=== PATIENT | female | born 1980 | race Caucasian/White ===

== ENCOUNTER 2021-10-09 00:26 | Emergency (ER) | payer OTHER, SELFPAY ==
--- NOTE | 2021-10-09 00:35 | DI.RAD.S_ITS ---
PROCEDURE: XR SHOULDER RT MIN 2V INDICATIONS: pain after fall TECHNIQUE: 3 views of the shoulder were acquired. COMPARISON: None. FINDINGS: Bones: No fractures or dislocations. No suspicious bony lesions. Visualized ribs appear intact. Soft tissues: No suspicious soft tissue calcifications. IMPRESSION: No acute osseous abnormality. Dictated by: Clem Mojica M.D. on 10/09/2021 at 0:46 Approved by: Clem Mojica M.D. on 10/09/2021 at 0:47
--- NOTE | 2021-10-09 00:36 | ED.GENADULT ---
HPI - General Adult General Chief complaint: Extremity Injury, Upper Stated complaint: sore rt should fell in shower t-3 days ago Time Seen by Provider: 10/09/21 00:32 Source: patient Mode of arrival: Ambulatory Limitations: no limitations History of Present Illness HPI narrative: Patient is a 41-year-old female here for evaluation of her right shoulder injury. States that approximately 3 days ago she she fell while she was in the shower. She did fall on an outstretched arm and hit her right shoulder on the corner of the shower. She did not hit her head. Has had discomfort in her right arm/right shoulder since the has been taking Tylenol/ibuprofen. Her primary doctor's office was closed until the middle of this week so the triage line that she called told her to come to the emergency department for evaluation. Review of Systems Constitutional Constitutional: Reports system reviewed and no additional complaints, except as documented Musculoskeletal Musculoskeletal: Reports system reviewed and no additional complaints, except as documented and Reports as per HPI Integumentary/Breasts Skin/Breast: Reports system reviewed and no additional complaints, except as documented Neurologic Comments: Tingling down right arm and hand Hematologic/Lymphatic On Anticoagulants: No Patient History Medical History Fibromyalgia Social History Smoking Status: Current every day smoker Exam Initial Vital Signs Initial Vital Signs: Vital Signs Temperature 99.6 F 10/09/21 00:38 Pulse Rate 94 H 10/09/21 00:38 Respiratory Rate 18 10/09/21 00:38 Blood Pressure 132/84 10/09/21 00:38 Pulse Oximetry 100 10/09/21 00:38 Cardio Pulses: radial pulses present on the right Back/Spine/Pelvis Cervical Spine: No cervical spinal tenderness Skin General: no rashes or lesions noted Neuro Sensory Exam: no sensory deficits noted Extrem Other: Patient has a negative [place] test. Negative [place] test. Negative cross-arm test. No tenderness over the biceps tendon. She reports tenderness to palpation over the lateral aspect of the shoulder or the deltoid. Collar bones unremarkable. Scapula is unremarkable. Course Orders Ordered: ED Orders 10/09/21 00:35 XR shoulder RT min 2V Stat Vital Signs Vital signs: Vital Signs - 8 hr 10/09/21 00:38 Temperature 99.6 F Pulse Rate 94 H Respiratory Rate 18 Blood Pressure 132/84 Pulse Oximetry 100 Medical Decision Making Imaging Data Extremity x-ray #1: Radiologist's Impression: [address] [address] XRay Report Signed Patient: Adali Fernandes MR#: [id number] : 1980 Acct:[id number] Age/Sex: 41 / F Date of Service: 10/09/21 Loc: ED Accession Number: [id number] ?? Procedure: XR shoulder RT min 2V Ordering Provider: Tereso Mc D.O. PROCEDURE:? XR SHOULDER RT MIN 2V ? INDICATIONS:? pain after fall ? TECHNIQUE:? 3 views of the shoulder were acquired.? ? COMPARISON:? None. ? FINDINGS:? ? Bones:? No fractures or dislocations.? No suspicious bony lesions.? Visualized ribs appear intact.? ? Soft tissues:? No suspicious soft tissue calcifications.? ? IMPRESSION:? No acute osseous abnormality. ? ? Dictated by: Clem Mojica M.D. on 10/09/2021 at 0:46 ? ? Approved by: Clem Mojica M.D. on 10/09/2021 at 0:47 MDM Narrative Medical decision making narrative: Patient is neurovascularly intact. No fractures noted on the x-rays. No dislocation. I did discuss with her the use of nonsteroidal anti-inflammatories and also Tylenol. No indication for further radiologic studies here in the ER. We did discuss the possibility of other soft tissue injuries and she was instructed to contact her primary doctor for a follow-up as she may need further evaluation potentially by physical therapy or an MRI in the future if the symptoms do not improve. She expressed understanding and agreement. Discharge Plan Departure Patient Disposition: Home Clinical Impression: Sprain of right shoulder Instructions: DI for Shoulder Sprain Activity Restrictions/Additional Instructions: There were no fractures noted on the x-rays. There are no dislocations noted. I do recommend you continue to take the nonsteroidal anti-inflammatories such as Motrin/Naprosyn/Aleve/ibuprofen. You can purchase these [id number]. You may need to take these multiple times a day with food for several days in a row. You can also take Tylenol in addition to these medications. I Do recommend you contact your primary doctor for a follow-up especially the symptoms do not improve because he may need further evaluation to include physical therapy or other imaging studies such as an MRI.
[2021-10-09 00:38] VITALS: BP 132/84; PULSE 94; RESP 18; TEMP 37.6; O2SAT 100; BMI 36.0
== END 2021-10-09 01:10 | disposition home or self-care (01) ==
PROVIDERS: Emergency Provider Emergency Medicine
DX: S43.401A Unspecified sprain of right shoulder joint, initial encounter (principal); F17.200 Nicotine dependence, unspecified, uncomplicated; W18.2XXA Fall in (into) shower or empty bathtub, initial encounter
CPT/HCPCS: 73030; 99283